=== PATIENT | female | born 1990 | race African-American/Black ===

== ENCOUNTER 2020-07-05 10:44 | Emergency (ER) | payer MEDICAID, SELFPAY ==
[2020-07-05 10:58] VITALS: BP 126/81; PULSE 100; RESP 16; TEMP 36.9; O2SAT 100
--- NOTE | 2020-07-05 11:15 | ED.FEMALEGU ---
HPI - Female Genitourinary General Chief complaint: Urogenital-Female Stated complaint: pos yeast infection/pos uti Time Seen by Provider: 07/05/20 11:00 Source: patient and RN notes reviewed Mode of arrival: ambulatory Limitations: no limitations History of Present Illness HPI Narrative: Patient presents today complaining of 2 to 3-day history of yellow malodorous vaginal discharge, external genital irritation and itching. 3 days ago, patient started on cefadroxil after her liposuction procedure and believes that this may be what started her symptoms. Denies hematuria, dysuria, frequency, urgency, abdominal pain or back pain. She tried a 1 day wxdc-ujz-qejroqa yeast medication without relief. MD elicited complaint: vaginal discharge Related Data Home Medications Medication Instructions Recorded Confirmed Duricef 07/05/20 Allergies Allergy/AdvReac Type Severity Reaction Status Date / Time shellfish derived Allergy Unknown Swelling Verified 08/20/18 23:58 Review of Systems Review of Systems: Narrative: CONSTITUTIONAL: Denies body aches, fever, chills, or sweats. EYES: Denies visual changes, redness, or discharge. ENT: Denies rhinorrhea, congestion, sore throat, or otalgia. CARDIOVASCULAR: Denies chest pain, palpitations, or edema. RESPIRATORY: Denies cough or dyspnea. GASTROINTESTINAL: Denies abdominal pain, nausea, vomiting, or diarrhea. GENITOURINARY: Denies dysuria or hematuria. + Vaginal discharge, vulvar itching and irritation. SKIN: Denies rash, itching, or wounds. MUSCULOSKELETAL: Denies back pain, joint pain, or myalgia. NEUROLOGIC: Denies headache, numbness, tingling, or weakness. PSYCH: Denies depression or anxiety. PMFSH Comments At time of signature, I have reviewed and agree with nursing past medical, surgical, social and family history unless otherwise noted. Please see nursing chart for further information. There is no relevant family history pertinent to the presenting complaint Exam Narrative: Exam Narrative: GENERAL: Well-appearing, well-nourished, and in no acute distress. HEAD: Normocephalic, atraumatic. EYES: EOMI. No redness or drainage. Conjunctivae normal. ENT: Mucous membranes pink and moist. NECK: Normal AROM. CHEST: No respiratory distress. ABDOMEN: Soft, nontender, nondistended, normal active bowel sounds. : External genitalia is mildly swollen, erythematous and irritated with small amount of white discharge noted from the vagina. MUSCULOSKELETAL: No bony tenderness. EXTREMITIES: Normal range of motion. No edema. SKIN: Warm, dry, no rash. Capillary refill normal. Normal skin turgor. NEURO: No focal deficits. Alert and oriented x3. Gait steady. PSYCH: Normal affect. No signs of depression or anxiety. Course Vital Signs Vital signs: Vital Signs Temperature 98.5 F 07/05/20 10:58 Pulse Rate 100 07/05/20 10:58 Respiratory Rate 16 07/05/20 10:58 Blood Pressure 126/81 07/05/20 10:58 Pulse Oximetry 100 07/05/20 10:58 Temperature 98.5 F 07/05/20 10:58 Pulse Rate 100 07/05/20 10:58 Respiratory Rate 16 07/05/20 10:58 Blood Pressure 126/81 07/05/20 10:58 Pulse Oximetry 100 07/05/20 10:58 Reviewed. Pt has been instructed to follow up with her PCP regarding her elevated blood pressure today. MDM - Female Genitourinary MDM Narrative Medical decision making narrative: At this time, patient is not experiencing any urinary symptoms. I will treat her for vulvovaginitis and send her urine off for culture. She will continue to take her Duricef. Differential Diagnosis Differential diagnosis: Likely urinary tract infection, bacterial vaginosis, vaginitis and other (Bonnie) Lab Data Attestation: I reviewed the patient's lab results. Labs: Urine Glucose Negative Reference Range: Negative Urine Bilirubin 1+ Reference R
== END 2020-07-05 11:22 | disposition home or self-care (01) ==
PROVIDERS: Emergency Provider Nurse Practitioner
DX: B37.3 Candidiasis of vulva and vagina (principal)
CPT/HCPCS: 81003; 87086; 99213; G0463

== ENCOUNTER 2020-10-02 17:31 | Emergency (ER) | payer SELFPAY ==
--- NOTE | 2020-10-02 17:37 | ED.FEMALEGU ---
HPI - Female Genitourinary General Chief complaint: Urogenital-Female Stated complaint: Yeast infection Time Seen by Provider: 10/02/20 17:42 Source: patient and RN notes reviewed Mode of arrival: ambulatory Limitations: no limitations History of Present Illness HPI Narrative: 29-year-old female presents with concern for vaginal itching. Reports she has been taking antibiotic for a tooth infection and began having vaginal itching. Reports she tried [id number] Monistat which made the irritation worse so she rinsed it off. She denies any concern for STD, recently had negative STD testing. She denies dysuria, frequency, urgency, abdominal pain, fever, body aches. Reports small amount of thick white vaginal discharge. MD elicited complaint: genital itching Related Data Allergies Allergy/AdvReac Type Severity Reaction Status Date / Time shellfish derived Allergy Intermediate Swelling Verified 10/02/20 17:39 Review of Systems Review of Systems: Narrative: CONSTITUTIONAL: Denies malaise, chills, sweats, or fever. GASTROINTESTINAL: Denies abdominal pain, nausea, vomiting, diarrhea GENITOURINARY: Denies dysuria or hematuria. SKIN: Reports vaginal itching MUSCULOSKELETAL: Denies myalgia. All systems reviewed & are unremarkable except as noted in HPI and below PMFSH Social History Social History Gender identity (if verbalized by the patient): Female Comments At time of signature, agree with nursing past medical, surgical, social and family history. There is no relevant family history pertinent to the presenting complaint Exam Narrative: Exam Narrative: GENERAL: Well-appearing, well-nourished, and in no acute distress. HEAD: Normocephalic. EYES: PERRLA, conjunctivae clear. NECK: Supple. No lymphadenopathy CHEST: Clear to auscultation. No respiratory distress. HEART: Regular rate and rhythm. ABDOMEN: Soft, nontender upon palpation, nondistended, no palpable or pulsatile masses, no guarding. SKIN: Warm, dry, no rash. NEURO: Alert and oriented x3. PSYCH: Normal mood and affect Course Course Emergency Course: Patient is aware of diagnosis, understands and agrees to treatment plan. Anticipatory guidance given. Patient agrees to follow-up as directed and is aware of reasons to seek care at the emergency department. Portions of this record may have been created with voice recognition software Vital Signs Vital signs: Reviewed. MDM - Female Genitourinary MDM Narrative Medical decision making narrative: Exam findings show no acute concerns or changes; patient is non-toxic appearing and is in no distress. Patient is appropriate for outpatient treatment and follow-up. Critical Care Time Critical Care Time Critical Care Time: No Discharge Plan Discharge Clinical Impression: Vaginal itching Patient Disposition: Home, Self-Care Condition: Stable Instructions: Yeast Infection (ED) Additional Instructions: 1) Please follow-up with your primary care doctor in the next 1-2 days. 2) If you have any worsening of symptoms or any other urgent concerns please go to the ER. 3) Please take medications as prescribed and continue taking your home medications as usual. It can take up to 7 days for vaginal yeast infection medication to completely relieve symptoms. Take the first tablet today, if you have continuing symptoms after 48 hours you can take a tablet. You can use an wwkl-afg-[id number] vaginal itch cream. 4) Please read and follow information included in discharge instructions. Prescriptions: New fluconazole [Diflucan] 150 mg tablet 150 mg PO ONCE Qty: 2 RF: 0 Follow-up/Referrals: PHYSICIAN,FUNCTIONAL CONSULTANT [Primary Care Provider] - Time of Disposition: 17:52
[2020-10-02 17:42] VITALS: BP 125/77; PULSE 100; RESP 18; TEMP 37.1; O2SAT 100
== END 2020-10-02 17:54 | disposition home or self-care (01) ==
PROVIDERS: Emergency Provider Nurse Practitioner
DX: N89.8 Other specified noninflammatory disorders of vagina (principal)
CPT/HCPCS: 99213; G0463

== ENCOUNTER 2021-03-05 21:41 | Emergency (ER) | payer OTHER, MEDICAID, SELFPAY ==
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
[2021-03-05 22:04] VITALS: BP 128/92; PULSE 70; RESP 16; TEMP 36.4; O2SAT 100
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
[2021-03-06] MEDS: IBUPROFEN 400 MG TABLET 800 MG PO (04:02)
[2021-03-06 04:41] LABS: Add Urine Microscopic? YES; Appearance Urine Cloudy (Clear); Bilirubin Urine Negative (Negative); Color Urine Amber (Yellow); Glucose Urine UA Negative (Negative); Ketones Urine Trace mg/dL (Negative); Leukocyte Esterase Ur 1+ LEU/UL (Negative); Mucus Urine Heavy /lpf; Nitrate Urine Negative (Negative); Protein Urine 1+ mg/dL (Negative); Squamous Epithelial Cell Urine Many /hpf (Few); WBC Urine 21-30 /hpf
[2021-03-06 04:47] LABS: Blood Urine Negative (Negative); Specific Grav Ur 1.032 (1.001-1.035)
[2021-03-06] MEDS: CEPHALEXIN 500 MG CAPSULE PO (05:05)
[2021-03-06 05:13] VITALS: BP 109/68; PULSE 66; RESP 18; TEMP 36.5; O2SAT 98
== END 2021-03-06 05:14 | disposition home or self-care (01) ==
PROVIDERS: Emergency Provider Emergency Medicine
DX: S40.022A Contusion of left upper arm, initial encounter (principal); S16.1XXA Strain of muscle, fascia and tendon at neck level, initial encounter; M54.9 Dorsalgia, unspecified; N39.0 Urinary tract infection, site not specified; V43.52XA Car driver injured in collision with other type car in traffic accident, initial encounter; Y92.410 Unspecified street and highway as the place of occurrence of the external cause
CPT/HCPCS: 72040; 72070; 72100; 73060; 81001; 81025; 87086; 87088; 99284; A9270

== ENCOUNTER 2021-11-05 20:18 | Emergency (ER) | payer MEDICAID, SELFPAY ==
--- NOTE | ~2021-11-05 | CT_ITS ---
EXAMINATION: CTA chest PE protocol DATE: 11/05/2021 22:47 INDICATION: Chest pain radiating to the right shoulder. TECHNIQUE: Computed tomography (CT) pulmonary angiogram of the chest was performed with 100 mL Omnipa que-350 intravenous contrast. Additional 3D reconstructions utilizing coronal maximum intensity proje ction (MIP) were performed. Automated exposure control and iterative reconstruction technique were em ployed. The dose-length product was 260.88 mGy-cm. COMPARISON: None FINDINGS: No pulmonary embolism. No pneumonia, pulmonary edema, pleural effusion or pneumothorax. Heart size is normal. No pericardial effusion. Thoracic aorta is normal in caliber with no dissection. No patholog ically enlarged just upper abdomen is unremarkable. lymphadenopathy. Mild S-shaped thoracic scoliosis . IMPRESSION: 1. No pulmonary embolism or other acute cardiopulmonary disease. Reviewed, dictated and finalized at location A.
--- NOTE | ~2021-11-05 | XR_ITS ---
EXAMINATION: XR chest 1V portable DATE: 11/05/2021 20:34 INDICATION: Left-sided chest pain TECHNIQUE: frontal view of the chest was obtained. COMPARISON: None FINDINGS: The lungs are clear with no focal airspace opacities, pulmonary edema, pleural effusion or pneumothor ax. The cardiomediastinal silhouette is normal. Mild upper thoracic dextrocurvature with mild levocur vature of the mid to lower thoracic spine. IMPRESSION: 1. No acute cardiopulmonary disease. Reviewed, dictated and finalized at location A.
[2021-11-05 20:15] VITALS: BP 115/91; PULSE 127; RESP 18; TEMP 37.1; O2SAT 100
--- NOTE | 2021-11-05 20:20 | ECG_ITS ---
Measurements Intervals [place] Rate: 127 P: 50 NV: 161 QRS: 65 QRSD: 90 T: 18 QT: 335 QTc: 488 Interpretive Statements SINUS TACHYCARDIA BASELINE ARTIFACT NONSPECIFIC T-WAVE ABNORMALITY INFERIOR LEADS ABNORMAL ECG NO PREVIOUS ECG AVAILABLE FOR COMPARISON Electronically Signed On 11-06-2021 15:58:23 CDT by Leodan Carrizales M.D.
--- NOTE | 2021-11-05 20:47 | ED.GENADULT ---
HPI - General Adult General Chief complaint: Chest Pain Stated complaint: CHEST PAIN History of Present Illness HPI narrative: This is a 30-year-old female presenting to ED for chest pain. The patient said that the chest pain started today at 4:00 p.m. while she was changing clothes. She describes it as a heaviness over Uppstrom knee on the posterior right shoulder. Has 5/10 in intensity. Sudden onset getting worse. She denies this ever happening before. It is worsened with deep breaths and there are no alleviating factors. It is not associated with diaphoresis, vomiting or exertion. She denies lower extremity swelling or history of blood clots. The patient did have a breast reduction surgery 2 weeks ago. The patient stated that she was coming to the hospital when she was pulled over by police. There is a warrant for her arrest. She was then brought to the hospital for medical evaluation. Related Data Allergies Allergy/AdvReac Type Severity Reaction Status Date / Time shellfish derived Allergy Intermediate Swelling Verified 10/02/20 17:39 Review of Systems Review of Systems: CONSTITUTIONAL: Denies night sweats. EYES: No eye pain ENT: Denies rhinorrhea CARDIOVASCULAR: Denies palpitations RESPIRATORY: Denies hemoptysis GASTROINTESTINAL: Denies hematemesis GENITOURINARY: Denies hematuria. SKIN: Denies rash MUSCULOSKELETAL: Denies myalgia. NEUROLOGIC: Denies weakness. PSYCHIATRIC: Denies delusions PMFSH Social History Social History Gender identity (if verbalized by the patient): Female Exam Narrative: APPEARANCE: No apparent distress. Head atraumatic. EYES: PERRLA/EOMI, NOSE: Normal no drainage NECK: Supple, Trachea midline RESPIRATORY: CTAB, No increased work of breathing. CARDIOVASCULAR: S1S2 appreciated, no lower extremity edema. Tachycardic ABDOMINAL: Soft, nontender, nondistended, MUSCULOSKELETAl: No obvious deformities NEURO: Alert. Moving 4/4 extremities SKIN:: Warm, dry. Normal color PSYCHIATRIC: Normal affect Course Vital Signs Vital signs: Vital Signs Temperature 98.7 F 11/05/21 20:15 Pulse Rate 127 H 11/05/21 20:15 Respiratory Rate 18 11/05/21 20:15 Blood Pressure 115/91 H 11/05/21 20:15 Pulse Oximetry 100 11/05/21 20:15 Temperature 98.7 F 11/05/21 20:15 Pulse Rate 127 H 11/05/21 20:15 Respiratory Rate 18 11/05/21 20:15 Blood Pressure 115/91 H 11/05/21 20:15 Pulse Oximetry 100 11/05/21 20:15 Medical Decision Making MDM Narrative Medical decision making narrative: This is a 30-year-old female presenting to ED with chest pain. Patient has a Wells score of 3 which puts her at moderate risk for PE. Lab work, troponin BNP and D-dimer have been ordered. EKG and chest x-ray have been ordered. Patient has been given 1 L fluids. EKG interpretation: Rhythm Sinus tachycardia, Rate 127, [place] -normal, IN -normal, QRS narrow, QTC normal, T waves -negative for concerning inversions, ST Segments - Negative for concerning elevations Final interpretations: Sinus tachycardia Vital Signs Vital Signs: Vital Signs Temperature 98.7 F 11/05/21 20:15 Pulse Rate 127 H 11/05/21 20:15 Respiratory Rate 18 11/05/21 20:15 Blood Pressure 115/91 H 11/05/21 20:15 Pulse Oximetry 100 11/05/21 20:15 Temperature 98.7 F 11/05/21 20:15 Pulse Rate 127 H 11/05/21 20:15 Respiratory Rate 18 11/05/21 20:15 Blood Pressure 115/91 H 11/05/21 20:15 Pulse Oximetry 100 11/05/21 20:15 Discharge Plan Discharge Prescriptions: No Action fluconazole [Diflucan] 150 mg tablet 150 mg PO ONCE Qty: 2 0RF Rx Instructions: Take 1 tablet today, and 48 hours take a second tablet if your still having symptoms cyclobenzaprine 10 mg tablet 10 mg PO TID PRN (Reason: muscle spasm) Qty: 21 0RF diclofenac potassium 50 mg tablet 50 mg PO TID PRN (Reason: pain) Qty: 21 0
[2021-11-05 21:05] VITALS: BP 132/94; PULSE 104; RESP 16; O2SAT 98
[2021-11-05 21:12] LABS: Basophils Percent Auto 0.4 % (0.2-1.2); Eosinophils Absolute Auto 0.1 K/mm3 (0-0.3); Eosinophils Percent Auto 0.7 % (0-4.4); Hematocrit 36.2 % (37.0-47.0); Hemoglobin 11.5 g/dL (12.0-15.0); Immature Granulocyte Absolute 0.02 K/mm3 (0.00-0.031); Immature Granulocyte Percent A 0.3 % (0-0.5); Lymphocytes Absolute Auto 1.67 K/mm3 (0.9-3.2); Lymphocytes Percent Auto 22.2 % (18.3-44.2); Mean Corpuscular HGB Conc 31.8 g/dl (32-36); Mean Corpuscular Hemoglobin 27.1 pg (26-34); Mean Corpuscular Volume 85.4 fl (80-100); Mean Platelet Volume 10.7 fl (7.4-10.4); Monocytes Absolute Auto 0.5 K/mm3 (0.1-0.6); Monocytes Percent Auto 7.2 % (2.6-8.5); Neutrophils Absolute Auto 5.2 K/mm3 (1.3-6.7); Neutrophils Percent Auto 69.2 % (45.5-73.1); Platelet Count Result 436 k/mm3 (150-375); Red Blood Count 4.24 M/mm3 (4.2-5.4); White Blood Count 7.5 K/mm3 (4.5-10.0)
[2021-11-05 21:21] LABS: Prothrombin Time 13.2 Seconds (11.1-14.7)
[2021-11-05 21:26] LABS: Alanine Aminotransferase 16 U/L (6-35); Albumin Level 4.7 g/dL (3.5-5.1); Alkaline Phosphatase 76 U/L (38-126); Anion Gap 13 mmol/L (8-16); Aspartate Amino Transferase 24 U/L (14-36); Blood Urea Nitrogen 9 mg/dL (7-17); Calcium 9.4 mg/dL (8.4-10.2); Carbon Dioxide 21 mmol/L (22-30); Chloride 101 mmol/L (98-107); Estimated CRCL calculation 98 ml/min; Estimated Glomerular Filt Rate > 60; Glucose 107 mg/dL (65-110); Potassium 3.1 mmol/L (3.4-5.0); Sodium 135 mmol/L (137-145)
[2021-11-05 21:30] LABS: NT Pro B Type Natriuretic Pept < 11 pg/mL (5-100)
[2021-11-05 21:37] LABS: Troponin I 0.016 ng/mL (0.000-0.034)
[2021-11-05 21:45] LABS: D Dimer 0.97 ug/mL (<0.48); Lipase 41 U/L (23-300)
[2021-11-05 21:51] VITALS: PULSE 100
[2021-11-05 21:52] VITALS: BP 124/105; PULSE 93; RESP 18; O2SAT 98
[2021-11-05 22:23] LABS: Amphetamine Screen Urine Negative (Negative); Barbiturate Screen Urine Negative (Negative); Benzodiazepines Screen Urine Negative (Negative); Cannabinoid Screen Urine Negative (Negative); Cocaine Screen Urine Negative (Negative); Methadone Screen Urine Negative (Negative); Opiate Screen Urine Negative (Negative); Phencyclidine Screen Urine Negative (Negative)
[2021-11-05] MEDS: POTASSIUM BICARBONATE 25 MEQ TABEF 50 MEQ PO (22:27)
[2021-11-05] MEDS: POTASSIUM CHLORIDE 20 MEQ TABLET 40 MEQ (22:56)
[2021-11-05 23:31] LABS: Troponin I 0.016 ng/mL (0.000-0.034)
[2021-11-05 23:59] VITALS: RESP 16
== END 2021-11-06 00:13 ==
PROVIDERS: Emergency Provider Emergency Medicine
DX: R07.89 Other chest pain (principal)
CPT/HCPCS: 36415; 71045; 71275; 80053; 80307; 81025; 83690; 83880; 84484; 85025; 85380; 85610; 85730; 93005; 99284; A9270; Q9967

== ENCOUNTER 2024-06-16 21:04 | Emergency (ER) | payer MEDICAID, SELFPAY ==
--- NOTE | ~2024-06-16 | XR_ITS ---
XR ankle RT min 3V Ordering provider: Nuvia Miller MD History: . RIGHT ANKLE PAIN . Comparison: None. FINDINGS: BONES: No acute fracture or dislocation. JOINT SPACES: Normal. SOFT TISSUES: Normal. IMPRESSION: No acute osseous abnormality of the right ankle. Reviewed, dictated and finalized at location A.
--- NOTE | ~2024-06-16 | XR_ITS ---
XR chest 2V Ordering provider: Nuvia Miller MD History: 33 years Female with . right sided chest discomfort . Comparison: None. FINDINGS: MEDIASTINUM: The cardiac silhouette is not enlarged. LUNGS: No infiltrates, effusions or pneumothorax. OTHER: No free air under the diaphragm. IMPRESSION: No acute cardiopulmonary pathology. Reviewed, dictated and finalized at location A.
[2024-06-16 21:07] VITALS: BP 117/80; PULSE 69; RESP 16; TEMP 37; O2SAT 100
--- OUTSIDE RECORDS SUMMARY | 2024-06-16 21:07 | XMS_ITS | Encounter Summary ---
Author Organization [facility] Address [address] [place] [address] Care Team Providers Care Enterprise Architect Manager Name Role Phone Brooke Morley MD Primary Care Provider [phone] Encounter Details Date Type Department Care Team (Late st Contact Info) Description 05/17/2024 Results Follow-Up [facility] Jeni Antonio [address] [id number] [place] [address] [address] VAGINOSIS/VAGINITIS PANEL PLUS Social History Tobacco Use Types Packs/Day Years Used Date Smoking Tobacco: Never Smokeless Tobacco: Never Alcohol Use Standard Drinks/Week Comments No 0 (1 standard drink = 0.6 oz pur e alcohol) Comments No Sex and Gender Information Value Date Recorded Sex Assigned at Not on file Legal Sex Female 4:06 PM CDT Gender Identity Not on file Sexual Orientation Not on file documented as of this encounter Plan of Treatment Upcoming Encounters Date Type Department Care Team (Late st Contact Info) Description 10/17/2024 9:00 AM CDT Appointment [facility] Jeni Antonio [address] [place] [phone] [place] [address] [address] documented as of this encounter Visit Diagnoses Not on filedocumented in this encounter Care Teams Enterprise Architect Manager Relationship Specialty [place] [address] [address] PCP - General Family Practice 09/06/18 documented as of this encounter
--- OUTSIDE RECORDS SUMMARY | 2024-06-16 21:07 | XMS_ITS | Referral Summary ---
Author Organization [facility] Address [address] [address] Care Team Providers Care Corporate Manager Name Role Phone Unavailable Primary Care Provider Unavailabl e Source Comments [facility],non-owned Affiliates and Associated Physician Practices is amultiple site organization consisting of ambulatory clinics and hospital sitesin [place], [place], [place] and [place]. This disclosure is being madepursuant to the Care Everywhere program and may not contain all information available regarding this patient. Last updated 17.[facility] [employer] Allergies Active Allergy Reactions Criticality Noted Date Comments Shellfish Allergy Anaphylaxis High 08/05/2017 Medications * Be aware that medications may not be up to date on this document. Alwaysverify current medications with the patient. Medication Sig Dispensed Refills Start Date End Date Status predniSONE (DELTASONE) 20 MG tablet Take 2 tablets by mouth once daily 6 tablet 08/05/2017 Active diphenhydrAMINE (BENADRYL) 25 MG tablet Take 1 tablet by mouth every 4 hours as needed for Itching or Allergies 20 tablet 08/05/2017 Active Social History Tobacco Use Types Packs/Day Years Used Date Smoking Tobacco: Never Smokeless Tobacco: Never Alcohol Use Standard Drinks/Week Comments No 0 (1 standard drink = 0.6 oz pur e alcohol) Sex and Gender Information Value Date Recorded Sex Assigned at Not on file Gender Identity Not on file Sexual Orientation Not on file Last Filed Vital Signs Vital Sign Reading Time Taken Comments Blood Pressure 142/81 08/05/2017 1:27 PM CDT Pulse 90 08/05/2017 1:27 PM CDT Temperature 37 C (98.6 F) 08/05/2017 2:00 PM CDT Respiratory Rate 13 08/05/2017 1:27 PM CDT Oxygen Saturation 99% 08/05/2017 1:27 PM CDT Inhaled Oxygen Concentration - - Weight - - Height - - Body Mass Index - - Plan of Treatment Not on file
--- OUTSIDE RECORDS SUMMARY | 2024-06-16 21:07 | XMS_ITS | Referral Summary ---
Author Organization [facility] Address [address] [facility] [place] [address] Care Team Providers Care Refractive Surgeon Name Role Phone Peyman Danyelleyadiel Rodriguezelle Primary Care Provid er Allergies Active Allergy Reactions Criticality Noted Date Comments Shellfish Anaphylaxis High 08/05/2017 Medications medroxyPROGESTER one (PROVERA) 10 mg tablet Take 1 tablet (10 mg total) by mouth daily for 5 days 5 tablet 08/12/2021 Active Active Problems No known active problems Immunizations Immunization Administration Dates Next Due DTaP 03/09/1995,02/03/1994,07/15/1992 HPV, Quadrivalent 06/08/2007 Hep A, Adult 07/25/2012 Hep B Vaccine 08/10/2002,08/23/1996,11/23/1995 HiB 04/16/1992 IPV 08/17/2005,02/03/1994,04/16/1992 ,03/20/1990 MMR 02/03/1994,04/16/1992 Tdap 08/17/2005 Varicella 06/08/2007,08/10/2002 Social History Tobacco Use Types Packs/Day Years Used Date Smoking Tobacco: Never Tobacco Cessation:Counseling Given: Not Answered Personal Safety Answer Date Recorded Have you ever been in or are you currently in a harmful physical or emotional relationship or is someone making you feel afraid or unsafe? Denies 08/22/2022 Comments Unknown Sex and Gender Information Value Date Recorded Sex Assigned at Not on file Legal Sex Female 10:48 AM SPORTS PHYSICIAN Gender Identity Female 12/10/2021 2:18 AM CDT Sexual Orientation Not on file Last Filed Vital Signs Vital Sign Reading Time Taken Comments Blood Pressure 113/83 08/22/2022 7:20 PM CDT Pulse 81 08/22/2022 7:20 PM CDT Temperature 37 C (98.6 F) 08/22/2022 7:20 PM CDT Respiratory Rate 16 08/22/2022 7:20 PM CDT Oxygen Saturation 100% 08/22/2022 7:20 PM CDT Inhaled Oxygen Concentration - - Weight 74.8 kg (165 lb) 08/22/2022 6:41 PM CDT Height 165.1 cm (5' 5 ) 08/22/2022 6:41 PM CDT Body Mass Index 27.46 08/22/2022 6:41 PM CDT Plan of Treatment Not on file Insurance [facility] Care Teams Refractive Surgeon Relationship Specialty Start Date End Date Danyelle Morley DO [address] [address] PCP - General 07/31/20
--- OUTSIDE RECORDS SUMMARY | 2024-06-16 21:07 | XMS_ITS | Clinical Summary ---
Author Organization [facility] Address [address] [place] [address] Care Team Providers Care Administration Assistant Name Role Phone Daniel Menjivar MD Primary Care Provider [phone] Social History Tobacco Use Types Packs/Day Years Used Date Smoking Tobacco: Never Assessed Comments Unknown Sex and Gender Information Value Date Recorded Sex Assigned at Not on file Legal Sex Female 4:54 PM CDT Gender Identity Not on file Sexual Orientation Not on file Plan of Treatment Health Maintenance Due Date Last Done Comments Cervical Cancer Screening Pa p Smear (Age 30 to 64) Every 3 Years 1989 Annual Physical 1992 Hepatitis C 12/17/2007 DTaP, Tdap and Td Vaccines ( 1 - Tdap) 2008 Hepatitis B Vaccines (1 of 3 - 19+ 3-dose series) 2008 Cervical Cancer Screening Pa p with HPV Testing (Age 30 to 64) Every 5 Years 12/17/2019 Cervical Cancer Screening with HPV 12/17/2019 COVID-19 Vaccine (2023-2 5 season) 2023 Influenza Adult (#1) 2024 HPV Vaccines Aged Out No longer eligi ble based on patient's age to complete this topic Meningococcal B Vaccine Aged Out No l onger eligible based on patient's age to complete this topic Meningococcal Vaccine Aged Out No audrey odalys eligible based on patient's age to complete this topic Pneumococcal Vaccine: Pediat rics (0 to 5 Years) and At-Risk Patients (6 to 64 Years) Aged Out No longer eligible b ased on patient's age to complete this topic RSV Immunizations Under 20 Months Aged Out No longer eligible based on patient's age to complete this topic Care Teams Administration Assistant Relationship Specialty Start Date End Date Daniel Menjivar MD PCP - General 07/03/15
--- OUTSIDE RECORDS SUMMARY | 2024-06-16 21:07 | XMS_ITS | Clinical Summary ---
Author Organization [facility] Address [address] [place] [address] Phone Care Team Providers Care Sign Hanger Supervisor Name Role Phone Brooke Morley MD Primary Care Provider [phone] Allergies Active Allergy Reactions Criticality Noted Date Comments Shellfish Containing Products Swelling Low 2016 Medications PNV,calcium 87-uzfs-zjyte acid (M- Plus) 27 mg iron- 1 mg Tablet Take 1 Tablet by mouth daily. 100 Tablet 3 04/06/2024 2:50 PM SUPERVISOR METAL PLACING 4 Active phentermine (ADIPEX P) 37.5 mg tabletIndicatio ns:Obesity (BMI 30.0-34.9) Take 1 Tablet (37.5 mg) by mouth daily before breakfast. 30 Tablet 1 04/06/2024 2:50 PM SUPERVISOR METAL PLACING 4 Active Additional Information Patient not taking.Reported on 05/15/2024 ferrous sulfate (FeroSuL) 325 mg (65 mg iron) tabletIndicatio ns:Normocytic anemia Take 1 Tablet (325 mg) by mouth daily. 90 Tablet 1 04/06/2024 2:50 PM SUPERVISOR METAL PLACING 4 Active naltrexone (DEPADE) 50 mg tabletIndicatio ns:Overweight (BMI 25.0-29.9) Take 1/2 Tablet (25 mg) by mouth 2 times daily. 45 Tablet 1 05/15/2024 12:08 PM SUPERVISOR METAL PLACING 5 07/14/19 25 Active buPROPion HCL (WELLBUTRIN XL) 150 mg Extended Release 24 hour tabletIndicatio ns:Overweight (BMI 25.0-29.9) Take 1 Tablet (150 mg) by mouth daily in the morning. 90 Tablet 05/15/2024 12:08 PM SUPERVISOR METAL PLACING Active amoxicillin (AMOXIL) 500 mg capsule Take 1 Capsule (500 mg) by mouth 3 times daily until gone. 30 Capsule 5 Active ibuprofen (MOTRIN) 800 mg tablet Take 1 Tablet (800 mg) by mouth every 6 to 8 hours as needed for pain. 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 09/11/2020 Atypical squamous cells of u ndetermined significance on cytologic smear of cervix (ASC-US) 11/08/2018 Overview (08/11/2021): Pap August 2018: ASCUS with + HPV Colpo November 2018: LSIL Pap August 2019: LSIL Colpo 2020: LSIL Pap September 2020: ASCUS with negative HPV Needs repeat pap September 2021 S/P bilateral breast reduction 07/14/2017 Lip mass Resolved Problems Problem Noted Date Diagnosed Date Resolved Date Controlled substance agreeme nt signed-Phentermine 10/16/2021 09/29/2022 Overview (10/16/2021): Associated Diagnosis: E66.9 Current associated controlled meds: Phentermine Pharmacy listed in agreement: [facility] [phone]) Current medication agreement date signed: 10-01-21 First trimester bleeding 01/07/2020 Encounter for cosmetic surgery 07/14/2017 09/29/2022 Macromastia 10/17/2016 09/29/2022 Encounters Date Type Department Care Team Description 06/09/2024 External Device Data [facility] ABSTRACTION Provider, Abstract 06/08/2024 External Device Data [facility] ABSTRACTION Provider, Abstract 06/05/2024 External Device Data [facility] ABSTRACTION Provider, Abstract 05/23/2024 External Device Data [facility] ABSTRACTION Provider, Abstract 05/22/2024 External Device Data [facility] ABSTRACTION Provider, Abstract 05/17/2024 Results Follow-Up [facility] Jeni Antonio [address] [facility] [facility] [address] [place] [phone] Harsh Rosario MD VAGINOSIS/VAGINITIS PANEL PLUS 05/15/2024 9:30 AM SUPERVISOR METAL PLACING Video Visit [facility] [address] [facility] [place] [phone] Harsh Rosario MD Encounter for weight management (Primary Dx); Overweight (BMI 25.0-29.9); Vaginal discharge 05/11/2024 [facility] [address] [facility] [facility] [address] [place] [phone] Brooke Morley MD Needs Appointment 04/25/2024 External Device Data [facility] ABSTRACTION Provider, Abstract 04/24/2024 External Device Data [facility] ABSTRACTION Provider, Abstract 04/16/2024 1:00 PM SUPERVISOR METAL PLACING Procedure visit [facility] Plastic Surgery at the [facility] [address] [place] [address] Yaya Zheng MD Keloid scar of skin (Primary Dx) from Last 3 Months Immunizations Immunization Administration Dates Next Due (ADACEL/BOOSTRIX)(10 YR UP) TDAP VACCINE, 0.5ML, IM 08/17/2005 (GARDASIL)(9-45 YRS) HUMAN PAPILLOMAVIRUS VACCINE, TYPES 6, 11, 16, 18, QUADRIVALENT (4VHPV), 3 DOSE, IM 06/08/2007 (INFANRIX)(6 WKS-6 YRS) DIPT HERIA, TETANUS TOXOIDS, AND ACCELLULAR PERTUSSIS VACCINE (DTAP), 0.5 ML IM 03/09/1995,02/03/1994,07/15/1992 (IPOL)(6 WKS AND UP) POLIOVI MALLORY VACCINE, INACTIVATED (IPV), 3 DOSE, SUBCUT OR IM 08/17/2005,02/03/1994,04/16/1992,03/20 (M-M-R II/PRIORIX)(12 MO UP) MEASLES, MUMPS AND RUBELLA VIRUS VACCINE, 0.5 ML IM/SUBCUT 02/03/1994,04/16/1992 (VARIVAX)(12 MOS UP)VARICELL A VIRUS VACCINE (PF) 0.5 ML, SUB CUT 06/08/2007,08/10/2002 HIB, Unspecified Formulation 04/16/1992 Hepatitis A Vaccine 07/25/2012 Hepatitis B Vaccine 08/10/2002,08/23/1996,1995 Family History Medical History Relation Name Comments Hypertension Father lian ralph Healthy Mother katie hurd Relation Name Status Comments Father lian ralph Alive Mother katie hurd Alive Social History Tobacco Use Types Packs/Day Years Used Date Smoking Tobacco: Never Smokeless Tobacco: Never Tobacco Cessation:Counseling Given: Not Answered Alcohol Use Standard Drinks/Week Comments No 0 (1 standard drink = 0.6 oz pur e alcohol) Comments No Sex and Gender Information Value Date Recorded Sex Assigned at Not on file Legal Sex Female 4:06 PM CDT Gender Identity Not on file Sexual Orientation Not on file Last Filed Vital Signs Vital Sign Reading Time Taken Comments Blood Pressure 123/74 04/16/2024 1:06 PM SUPERVISOR METAL PLACING Pulse 77 12/22/2023 1:44 PM CDT Temperature 36.9 C (98.5 F) 12/22/2023 1:44 PM CDT Respiratory Rate 20 11/07/2021 3:44 PM CDT Oxygen Saturation 99% 12/22/2023 1:44 PM CDT Inhaled Oxygen Concentration - - Weight 80.7 kg (178 lb) 05/15/2024 9:22 AM SUPERVISOR METAL PLACING Height 165.1 cm (5' 5 ) 05/15/2024 9:22 AM SUPERVISOR METAL PLACING Body Mass Index 29.62 05/15/2024 9:22 AM SUPERVISOR METAL PLACING Plan of Treatment Upcoming Encounters Date Type Department Care Team (Late st Contact Info) Description 10/17/2024 9:00 AM CDT Appointment [facility] Family Medicine Jeni Antonio [address] [facility] [address] [place] [address] [place] [address] [address] [facility] [address] [place] [address] Health Maintenance Due Date Last Done Comments HPV VACCINES (2 - 3-dose series) 07/06/2007 06/08/19 08 DTAP/TDAP/TD VACCINES (5 - T d or Tdap) 08/18/2015 08/17/2005, 03/09/1995, 02/03/1994, Additional history exists Preventative Visit- Commercial 04/04/2024 0 10/10/2023, 09/29/2022, 09/11/2020, Additional history exists CERVICAL CANCER SCREENING 10/09/20242023, 09/29/2022, 08/18/2021, Additional history exists HEPATITIS B VACCINES Completed 08/10/2002, 08/23/1996, 11/23/1995 INFLUENZA VACCINE Completed 12/22/2023, , 01/17/2020, Additional history exists Procedures Procedure Name Priority Date/Time Associated Diagnosis Comments VAGINOSIS/VAGINITIS PANEL PLUS Routine 05/15/2024 12:06 PM SUPERVISOR METAL PLACING Vaginal discharge PATHOLOGY Routine 04/16/2024 3:16 PM SUPERVISOR METAL PLACING Keloid scar of skin CERV/VAG CYTO AGE BASED SCREEN PAP Routine 10/10/2023 5:12 PM CDT Cervical cancer screening from Last 3 Months or Most Recently Relevant to Health Maintenance Results * VAGINOSIS/VAGINITIS PANEL PLUS (05/15/2024 12:06 PM SUPERVISOR METAL PLACING) BACTERIAL VAGINOSIS NEGATIVE NEGATIVE [facility] BONNIE SPECIES NOT DETECTED NOT DETECTED [facility] BONNIE GLABRATA NOT DETECTED NOT DETECTED [facility] Comment: Bonnie species C. albicans, C. tropicalis, C. parapsilosis, and/or C. dubliniensis can be detected, but not differentiated, in the Bonnie spp. result. TRICHOMONAS VAGINALIS (TV), TMA NOT DETECTED NOT DETECTED [facility] CHLAMYDIA TRACHOMATIS RNA, TMA, UROGENITAL NOT DETECTED NOT DETECTED [facility] NEISSERIA GONORRHOEAE RNA, TMA, UROGENITAL NOT DETECTED NOT DETECTED [facility] Comment: For additional information, please refer to https://education.Stazoo.com/faq/GUJ131 (This link is being provided for information/ educational purposes only.) Test Performed at: [facility] [address] [facility] [place] [address] Huma Rendon MD Genital SPECIMEN FROM VAGINA / Unknown 05/15/2024 12:06 PM SUPERVISOR METAL PLACING 05/16/2024 4:15 AM SUPERVISOR METAL PLACING Carmen Ross Negron DO MICROBIOLOGY - GENERAL [facility]DE [facility] Final Result [facility] [phone] [facility] [address] [facility] [place] [address] * PATHOLOGY (04/16/2024 3:16 PM SUPERVISOR METAL PLACING) CASE REPORT Surgical Pathology Report Case: [id number] Authorizing Provider: Yaya Zheng MD Collected: 04/16/2024 03:16 PM Ordering Location: [facility] Plastic Received: 04/17/2024 07:05 AM Surgery at the [facility] Medicine Pathologist: Jose Luis Lisa MD Specimens: A) - Shoulder, left B) - Shoulder, right 12:19 PM SUPERVISOR METAL PLACING [facility] FINAL DIAGNOSIS Skin, left shoulder, excision: - Keloid. Skin, right shoulder, excision: - Keloid. 12:19 PM SUPERVISOR METAL PLACING [facility] at [address] SUPERVISOR METAL PLACING GROSS DESCRIPTION The specimens are received in two containers each labeled Ren Ralph . Received in the first container additionally labeled left shoulder is a 2.1 x 1.0 cm unoriented ellipse of wrinkled lopez-brown skin excised to a depth of 0.9 cm. The margin is inked blue. A distinct lesion is not seen on the skin surface. Additionally received in the container is a 0.9 x 0.1 cm piece of lopez-brown skin excised to a depth of 0.4 cm. The margin is inked black. The ellipse is serially sectioned and the tissue is entirely submitted as follows: A1-ellipse tips; A2-ellipse central sections; A3-intact black inked tissue. Received in the second container additionally labeled right shoulder is a 2.3 x 1.0 cm unoriented ellipse of wrinkled lopez-brown skin excised to a depth of 0.6 cm. The skin surface displays a 1.1 x 0.6 x 0.2 cm raised and smooth lopez area located 0.1 cm from the nearest skin edge. The margin is inked blue. The tissue is serially sectioned and entirely submitted as follows: B1-tips; B2 and B3-central sections. [facility] 5 12:19 PM [facility] MICROSCOPIC DESCRIPTION The slides are labeled [id number] and Ren Ralph. Sections of skin from the left and right shoulder demonstrate thick, eosinophilic, haphazardly arranged collagen bundles associated with an increased number of fibroblasts. 5 12:19 PM [facility] CLINICAL INFORMATION L91.0 - Keloid scar of skin [ICD-10-CM] 12:19 PM [facility] COMMENT Special stain, immunohistochemical, and/or in situ hybridization results are interpreted with controls that demonstrate appropriate staining reactions. Note on use of immunohistochemistry reagents and in situ hybridization probes: These tests were developed and their performance characteristics determined by [facility], Department of Laboratory Medicine. It has not been cleared or approved by the U.S. Food and Drug Administration. The FDA has determined that such clearance or approval is not necessary. The test is used for clinical purposes. It should not be regarded as investigational or for research. This laboratory is certified to perform high complexity testing. Frozen section/operating room consultation, gross examination and dissection, and case sign out may have been performed in part or completely in the following laboratories: [facility], CLIA #[id number] [address] [place] [address] [facility], [place] #[id number] [address] [place] [address] [facility], [place] #[id number] [address] [place] [address] This report was created with the Drippler voice-activated dictation system. Inherent to this system is the possibility of syntax, grammar, punctuation and other errors that could impact the interpretation of the report. If there are interpretative questions about aspects of this report, please contact the performing pathologist. 12:19 PM SUPERVISOR METAL PLACING [facility] Tissue (Shoulder, left) Collection / Unknown 04/16/2024 3:16 PM SUPERVISOR METAL PLACING 04/17/2024 7:05 AM SUPERVISOR METAL PLACING Tissue specimen (specimen) (Shoulder, right) Collection / Unknown 04/16/2024 3:16 PM SUPERVISOR METAL PLACING 04/17/2024 7:05 AM SUPERVISOR METAL PLACING us Yaya Zheng MD PATHOLOGY/CYTOLOGY ORDER JONI Final Result [facility] Package [facility]# [id number] [address] [place] [address] * CERV/VAG CYTO AGE BASED SCREEN PAP (10/10/2023 5:12 PM CDT) COMMENT (PAP): [facility] Comment: This order for age-based cervical cancer and STI screening follows ACOG guidelines(PB 168, 140, DZN734). See individual assays for performing site location. CLINICAL INFORMATION [facility] Comment:None given LAST MENSTRUAL PERIOD [facility] Comment:HNG PREV PAP: [facility] Comment:NONE GIVEN PREV BX: [facility] Comment:NONE GIVEN SOURCE [facility] Comment:Endocervix ADEQUACY: [facility] Comment: Satisfactory for evaluation. Endocervical/transformation zone component present. Age and/or menstrual status not provided PAP INTERP [facility] Comment: Cytology Results: Negative for intraepithelial lesion or malignancy. COMMENT (PAP TEST) [facility] Comment: This Pap test has been evaluated with computer assisted technology. SHOOK SPLICER: [facility] Comment: GIRON, CT(ASCP) CT Screening location: [facility] [place] [address] REVIEW SHOOK SPLICER: Michelle Hughes Comment: ABC, CT(ASCP) CT screening location: [place] [address] Administration [place] [address] EXPLANATORY NOTE [facility] Comment: EXPLANATORY NOTE: The Pap is a screening test for cervical cancer. It is not a diagnostic test and is subject to false negative and false positive results. It is most reliable when a satisfactory sample, regularly obtained, is submitted with relevant clinical findings and history, and when the Pap result is evaluated along with historic and current clinical information. HPV E6/E7 Not Detected Not Detected [facility] Comment: Methodology: [employer] Laborer-Mediated Amplification This assay detects E6/E7 viral messenger RNA (mRNA) from 14 high-risk HPV types (16,18,31,33,35,39,45,51,52,56,58,59,66,68). Cervical sources are required for HPV testing. If a vaginal source from a patient who has had a total hysterectomy with removal of cervix was submitted, please contact the testing laboratory for alternative testing options. For additional information, please refer to http://education.Stazoo.com/faq/UPG082m1 (This link if provided for information/ educational purposes only.) Test Performed at: [facility] [address] [place] [address] Huma Rendon MD Genital SWAB OF ENDOCERVIX / Unknown 10/10/2023 5:12 PM CDT 10/11/2023 2:02 AM CDT Brooke Morley MD PATHOLOGY/CYTOLOGY ORDERABLE S Final Result [facility] [phone] [address] [place] [phone] from Last 3 Months or Most Recently Relevant to Health Maintenance Insurance RX INFOCROSSING Medicaid RX MARTIN PLANS (INTERNAL) [facility] [place] [address] MEDICAID MEDICAID Advance Directives For more information, please contact: [phone] * Full Code (Latest Code Status on File) Date Activated Date Inactivated Comments 09/17/2021 12:02 PM 09/17/2021 10:27 PM * Full Code Date Activated Date Inactivated Comments 08/30/2017 6:13 AM 08/30/2017 1:30 PM * Full Code Date Activated Date Inactivated Comments 03/01/2017 10:57 AM 03/01/2017 9:33 PM Care Teams Sign Hanger Supervisor Relationship Specialty [place] [address] [phone] PCP - General Family Practice 09/06/18
--- OUTSIDE RECORDS SUMMARY | 2024-06-16 21:07 | XMS_ITS | Clinical Summary ---
Author Organization [facility] Address [address] [facility] [facility] [place] [address] Care Team Providers Care Linen Worker Name Role Phone Peyman Danyelleyadiel Rodriguezelle Primary [...] on file Legal Sex Female 10:48 AM RUG CUTTER HELPER Gender Identity Female 12/10/2021 2:18 AM CDT Sexual Orientation Not on file Obstetrics History Para Term AB IAB SAB Ectopic Multiple Livin g Live Births 5 2 2 3 2 2 2 Date Outcome GA Total Labor Labor/2nd/3rd Weight Sex Type Anes PTL Tiff A1 A5 Name Clin Term Term 2018 SAB 7w0d 020 SAB 7w2d 022 AB 5w0d SAB Comments Patient reports 2 uncomplica sven vaginal deliveries. G5 - SAB on 11/20/21 at approx 5 weeks. Retained POC noted on US on 12/10 Last Filed Vital Signs Vital Sign Reading [...] 08/22/2022 6:41 PM CDT Plan of Treatment Health Maintenance Due Date Last Done Comments Cervical Cancer Screening 1989 Depression Screening 1989 Hepatitis C Screening 1989 HPV Vaccines (2 - 3-dose series) 07/06/2007 06/08/2007 Regular Well Visit/Exam 18-64 12/17/2007 DTaP/Tdap/Td Vaccine (5 - Td or Tdap) 08/18/2015 08/17/2005, 03/09/1995, 02/03/1994, Additional history exists Influenza Vaccine (#1) 2023 Hepatitis B Screening Completed 08/10/2002 , 08/23/1996, 11/23/1995 Varicella Vaccines Completed 06/08/2007, 08/10/2002 Pneumococcal vaccine <65 Aged Out No longer eligible based on patient's age to complete this topic Insurance Care Teams Linen Worker Relationship Specialty Start Date End Date Danyelle Morley DO [address] [place] [address] [facility] - General 07/31/20
--- OUTSIDE RECORDS SUMMARY | 2024-06-16 21:07 | XMS_ITS | Encounter Summary ---
Author Organization [facility] Address [address] [place] [address] Care Team Providers Care Exhaust And Muffler Repairer Name Role Phone Brooke Morley MD Primary Care Provider [phone] Encounter Details Date Type Department Care Team (Late Contact Info) Description 06/21/2022 Abstract [facility] [id number] [facility] [address] [place] [address] Mala Donaldson Social History Tobacco Use Types Packs/Day Years Used Date Smoking Tobacco: Never Smokeless Tobacco: Never Alcohol Use Standard Drinks/Week Comments Never 0 (1 standard drink = 0.6 oz pur e alcohol) Comments No Sex and Gender Information Value Date Recorded Sex Assigned at Not on file Legal Sex Female 4:06 PM CDT Gender Identity Not on file Sexual Orientation Not on file COVID-19 Exposure Response Date Recorded In the last 10 days, have yo u been in contact with someone who was confirmed or suspected to have Coronavirus/COVID-19? No / Unsure 06/24/2022 9:21 AM CDT documented as of this encounter Plan of Treatment Upcoming Encounters Date Type Department Care Team (Late Contact Info) Description 10/17/2024 9:00 AM CDT Appointment [facility] Medicine Jeni Antonio [address] [facility] [address] [place] [address] [place] [address] [facility] [address] [place] [address] documented as of this encounter Visit Diagnoses Not on filedocumented in this encounter Care Teams Exhaust And Muffler Repairer Relationship Specialty [place] [address] [address] PCP - General Family Practice 09/06/18 documented as of this encounter
--- OUTSIDE RECORDS SUMMARY | 2024-06-16 21:07 | XMS_ITS | Patient Health Summary ---
Author Organization [facility] Address [address] [place] [address] Care Team Providers Care Photostatic Copy Maker Name Role Phone Unavailable Primary Care Provider Unavailabl e Note from [facility],non-owned Affiliates and Associated Physician Practices is amultiple site organization consisting of ambulatory clinics and hospital sitesin [place], [place], [place] and [place]. This disclosure is being madepursuant to the Care Everywhere program and may not contain all information available regarding this patient. Last updated 17.[facility] Allergies * Shellfish Allergy(Anaphylaxis) -High Criticality Medications * Be aware that medications may not be up to date on this document. Alwaysverify current medications with the patient. * predniSONE (DELTASONE) 20 MG tablet(Started 08/05/2017) Take 2 tablets by mouth once daily * diphenhydrAMINE (BENADRYL) 25 MG tablet(Started 08/05/2017) Take 1 tablet by mouth every 4 hours as needed for Itching or Allergies Social History Tobacco Use Types Packs/Day Years [...] - - Body Mass Index - - Procedures * XR CHEST 1VW PORTABLE(Performed 08/05/2017) Performed for Cough * HCG BETA BLOOD QUANTITATIVE(Performed 08/05/2017) * COMPREHENSIVE METABOLIC PANEL(Performed 08/05/2017) * CBC W AUTO DIFFERENTIAL(Performed 08/05/2017) * CULTURE STREP GROUP A(Performed 08/05/2017) * STREP A SCREEN DIRECT W RFLX STREP A CULTURE(Performed 08/05/2017) Results * XR CHEST 1 VW PORTABLE (08/05/2017 11:49 AM CDT) Anatomical Region Laterality Modality Chest Radiographic Gabby ging 08/05/2017 11:5 3 AM CDT Impressions 08/05/2017 11:54 AM CDT Clear lungs. Narrative 08/05/2017 11:54 AM CDT Chest x-ray single view. HISTORY: Cough. Single view of the chest shows normal heart size with normal vessels. Lungs are clear. Procedure Note Luis Angel Hidalgo MD - 08/05/2017 Chest x-ray single view. HISTORY: Cough. Single view of the chest shows normal heart size with normal vessels. Lungs are clear. IMPRESSION Clear lungs. Krevin Ortiz MD DIAGNOSTIC IMAGING O RDERABLES * (ABNORMAL) CBC W AUTO DIFFERENTIAL (08/05/2017 11:33 AM CDT) WBC 5.3 4.4 - 10.7 x10E9/L 08/05/2017 11:44 AM CDT [facility] WBC Corrected x10E9/L 08/05/2017 11:44 AM CDT [facility] RBC 4.87 3.80 - 5.20 x10E12/L 08/05/2017 11:44 AM CDT [facility] Hemoglobin 11.7(L) 12.0 - 15.6 gm/dL 08/05/2017 11:44 AM CDT [facility] Hematocrit 37.5 35.9 - 45.5 % 08/05/2017 11:44 AM CDT [facility] MCV 77.0(L) 80.7 - 98.3 fl 08/05/2017 11:44 AM CDT [facility] MCH 24.0(L) 26.7 - 34.0 pg 08/05/2017 11:44 AM [facility] MCHC 31.2 30.8 - 35.9 gm/dL 08/05/2017 11:44 AM [facility] Platelet Count 372 153 - 416 x10E9/L 08/05/2017 11:44 AM [facility] RDW-CV 16.5(H) 12.1 - 14.9 % 08/05/2017 11:44 AM [facility] MPV 10.4 9.4 - 12.9 fl 08/05/2017 11:44 AM [facility] Neutrophils % 46.7 44.0 - 73.0 % 08/05/2017 11:44 AM [facility] Lymphocytes % 38.8 20.0 - 43.0 % 08/05/2017 11:44 AM [facility] Monocytes % 12.0 5.0 - 13.0 % 08/05/2017 11:44 AM [facility] Eosinophils % 0.8 0.0 - 6.0 % 08/05/2017 11:44 AM [facility] Basophils % 1.3 0.0 - 2.0 % 08/05/2017 11:44 AM [facility] Immature Granulocytes 0.4 0 - 1 % 08/05/2017 11:44 AM [facility] Neutrophil Absolute 2.46 2.01 - 7.14 x10E9/L 08/05/2017 11:44 AM [facility] Lymphocytes Absolute 2.04 1.07 - 3.94 x10E9/L 08/05/2017 11:44 AM [facility] Monocytes Absolute 0.63 0.26 - 1.07 x10E9/L 08/05/2017 11:44 AM [facility] Eosinophils Absolute 0.04 0 - 0.47 x10E9/L 08/05/2017 11:44 AM [facility] Basophils Absolute 0.07 0 - 0.08 x10E9/L 08/05/2017 11:44 AM [facility] Immature Granulocytes Absolute 0.02 0.00 - 0.06 x10E9/L 08/05/2017 11:44 AM [facility] nRBC Auto 0 /100 WBC 08/05/2017 11:44 AM CDT [facility] Blood BLOOD SPECIMEN / Unknown Venipuncture / Unknown 08/05/2017 11:33 AM CDT 08/05/2017 11:41 AM CDT Kervin Ortiz MD LAB - HEMATOLOGY ORD ERABLES [facility] [address] [place] [address] * (ABNORMAL) COMPREHENSIVE METABOLIC PANEL (08/05/2017 11:33 AM CDT) Glucose 78 74 - 106 mg/dL 08/05/2017 11:58 AM CDT [facility] Sodium 138 136 - 145 mmol/L 08/05/2017 11:58 AM [facility] Potassium 3.3(L) 3.5 - 5.1 mmol/L 08/05/2017 11:58 AM T [facility] Chloride 105 98 - 107 mmol/L 08/05/2017 11:58 AM CDT [facility] CO2 27 22 - 31 mmol/L 08/05/2017 11:58 AM CDT [facility] Calcium 9.4 8.5 - 10.1 mg/dL 08/05/2017 11:58 AM [facility] Anion Gap 6(L) 8 - 16 mmol/L 08/05/2017 11:58 AM T [facility] BUN 7 7 - 21 mg/dL 08/05/2017 11:58 AM [facility] Creatinine 1.00 0.50 - 1.30 mg/dL 08/05/2017 11:58 [facility] Alkaline Phosphatase 77 38 - 126 U/L 08/05/2017 11:58 AM CDT [facility] ALT 18 13 - 61 U/L 08/05/2017 11:58 AM CDT [facility] AST 11 5 - 40 U/L 08/05/2017 11:58 AM [facility] Protein Total 8.7(H) 6.4 - 8.2 gm/dL 08/05/2017 11:58 AM CDT [facility] Albumin 4.2 3.4 - 5.0 gm/dL 08/05/2017 11:58 AM T [facility] Bilirubin Total 0.5 0.2 - 1.0 mg/dL 08/05/2017 11:58 AM CDT [facility] eGFR by MDRD >60 >60 mL/min/1.7 3m2 08/05/2017 11:58 AM CDT [facility] eGFR by MDRD >60 >60 mL/min/1.7 3m2 08/05/2017 11:58 AM CDT [facility] Blood BLOOD SPECIMEN / Unknown Venipuncture / Unknown 08/05/2017 11:33 AM CDT 08/05/2017 11:41 AM CDT Kervin Ortiz MD LAB - CHEMISTRY [place]IL [place] Performing Organization Address [facility] Co de Phone Number [facility] [address] [place] [id number] * HCG BETA BLOOD QUANTITATIVE (08/05/2017 11:33 AM CDT) hCG Quantitative <1 mIU/mL 08/06/19 18 12:00 PM CDT [facility] Blood BLOOD SPECIMEN / Unknown Venipuncture / Unknown 08/05/2017 11:33 AM CDT 08/05/2017 11:41 AM CDT Narrative [facility] - 08/05/2017 12:00 PM CDT hCG Reference Range, mIU/mL: Males 0-2.0 Non Females 0-6.0 Perimenopausal Females ages 41-55* 0-7.7 Postmenopausal Females age >55* 0-14 Females, Weeks after Last Menstrual Period 0.2-1 week 5-50 1 - 2 weeks 50-500 2 - 3 weeks 100-5000 3 - 4 weeks 500-10,000 4 - 5 weeks 1000-50,000 5 - 6 weeks 10,000-100,000 6 - 8 weeks 15,000-200,000 2 - 3 months 10,000-100,000 Trophoblastic Disease >100,000 *In higher than expected hCG in females > age 40, a serum FSH >20 IU/L makes unlikely. Kervin Ortiz MD LAB - CHEMISTRY [place] Performing Organization Address [facility] Co de Phone Number [facility] [address] [place] [phone] * STREP A SCREEN DIRECT W RFLX STREP A CULTURE (08/05/2017 11:32 AM CDT) Strep A Rapid Negative Negative 08/05/2017 11:51 AM CDT [facility] Microbiology ENTIRE THROAT (SURFACE REGION OF NECK) / Unknown Collection / Unknown 08/05/2017 11:32 AM CDT 08/05/2017 11:50 AM CDT Narrative [facility] - 08/05/2017 11:51 AM CDT Test has reflexed to a Strep A culture. Kervin Ortiz MD LAB - MICROBIOLOGY O JOSE Performing Organization Address City/[facility]/ZIP Co de Phone Number [facility] [address] [place] [address] * CULTURE STREP GROUP A (08/05/2017 11:32 AM CDT) Culture Negative for beta-hemolytic Streptococcus Group A MALACHI 08/07/2017 12:55 PM CDT [facility] MICROBIOLOGY Microbiology ENTIRE THROAT (SURFACE REGION OF NECK) / Unknown Collection / Unknown 08/05/2017 11:32 AM CDT 08/05/2017 11:50 AM CDT Kervin Ortiz MD LAB - MICROBIOLOGY O JOSE [facility] MICROBIOLOGY [address] [place] [address], [facility] [phone]
--- OUTSIDE RECORDS SUMMARY | 2024-06-16 21:07 | XMS_ITS | Clinical Summary ---
Author Organization [facility] Address [address] [place] [address] Care Team Providers Care Acds Block 1 Operator Name Role Phone Unavailable Primary Care Provider Unavailabl e Source Comments [facility],non-owned Affiliates and Associated Physician Practices is amultiple site organization consisting of ambulatory clinics and hospital sitesin [place], [place], [place] and [place]. This disclosure is being madepursuant to the Care Everywhere program and may not contain all information available regarding this patient. Last updated 17.[facility] [employer] Allergies Active Allergy Reactions Criticality Noted Date [...] Mass Index - - Plan of Treatment Health Maintenance Due Date Last Done Comments PAP SMEAR 1989 HIV SCREENING 2004 HEPATITIS C SCREENING 12/12/2007 DTAP/TDAP/TD VACCINES (1 - Tdap) 2008 HEPATITIS B VACCINE (1 of 3 - 19+ 3-dose series) 2008 COVID-19 VACCINE (1 - 2023-2 5 season) 2023 INFLUENZA VACCINE (#1) 2023 DEPRESSION SCREENING 04/04/2024 ZOSTER VACCINE (1 of 2) 12/17/2039 HIB VACCINE Aged Out No longer eligi ble based on patient's age to complete this topic HPV VACCINE Aged Out No longer eligi ble based on patient's age to complete this topic MENINGOCOCCAL (Group B) VACC INE SHARED DECISION-MAKING Aged Out No longer eligibl e based on patient's age to complete this topic MENINGOCOCCAL GROUPS A/C/Y/W VACCINE Aged Out No longer eligible b ased on patient's age to complete this topic PNEUMOCOCCAL VACCINE Aged Out No long er eligible based on patient's age to complete this topic
--- NOTE | 2024-06-16 21:10 | ECG_ITS ---
Test Date: 2024-06-16 21:13:53 Measurements Intervals [place] Rate: 68 P: 52 MO: 193 QRS: 82 QRSD: 89 T: 63 QT: 353 QTc: 376 Interpretive Statements SINUS RHYTHM WITH SINUS ARRHYTHMIA No previous ECG available for comparison Electronically Signed On 06-17-2024 13:59:51 CDT by Chava Amaya D.O
--- NOTE | 2024-06-16 23:00 | ED_ITS ---
HPI - Chest Pain General Chief Complaint: Chest Pain Stated Complaint: RIGHT SIDED CHEST DISCOMFORT/LOWER EXTREMITY PAIN Time Seen by Provider: 06/16/24 22:40 Source: patient Mode of arrival: ambulatory Limitations: no limitations History of Present Illness HPI narrative: Patient presents with right side chest discomfort. She states it is not a christelle pain. She also notes that she is having back pain particularly between her shoulder blades slightly to the right. She describes it as an ache , like I need to stretch to get it to pop. These symptoms have been occurring intermittently for the past 6 or 7 months. She went to an emergency room in [place] on May 01, 2024 and had a chest x-ray and other workup performed which was unremarkable by report. She initially states no palliating or provoking factors but then states that it is positional. Not pleuritic in nature. She thought perhaps she noticed some subjective lower extremity edema the other day but thinks I might have been tripping. Has not taking in medications prior to arrival or in the past several weeks including no [id number] analgesics medications. History of anxiety. Has never seen a sales training manager. Although she is initially stated that been going on for 6 or 7 months she does report that also happened approximately 1 year ago and at that time she saw a chiropractor which helped for a period of time. She also notes that she pain in her right ankle this started when she had received a lower extremity massage and felt a pop during that massage. Also notes that Xray has been performed w/o any findings. Her last travel had been in April recently. No history of DVT or pulmonary embolism. No hormone use. Denies any shortness of breath, cough, fevers or chills. Denies any weight loss or night sweats. Cardiac risk factors: No hypertension, no hyperlipidemia, no diagnosis of diabetes mellitus. Nonsmoker. Not obese. No personal history of myocardial infarction/TIA/CVA. Patient's mother did require a cardiac stent before the age of [address] Morley Related Data Allergies Allergy/AdvReac Type Severity Reaction Status Date / Time shellfish derived Allergy Intermediate Swelling Verified 04/16/22 15:21 [facility], [facility] Family History Family History Mother H/O heart artery stent before age 65yo Social History Social History Smoking status: Never smoker Gender identity (if verbalized by the patient): Female Exam 2 Narrative: GENERAL: Well-appearing, well-nourished, and in no acute distress. HEAD: Normocephalic, atraumatic. EYES: Non injected, non icteric ENT: Nares clear, no rhinorrhea or epistaxis. NECK: Supple. CHEST: Speaking in full sentences. No respiratory distress. Lungs clear to auscultation bilaterally without wheezes, crackles, or appreciable consolidation. HEART: Regular rate and rhythm. BACK: No rash on skin. Slightly reproducible pain between shoulder blades at trapezius muscles, though particularly R > L. No scapular winging or gross asymetry. ABDOMEN: Soft, nondistended. EXTREMITIES: Normal range of motion. No lower extremity edema. Full ROM of right ankle without ecchymosis/laceration/contusion/cellulitis. SKIN: Warm, dry, no rash. NEURO: No focal deficits. Alert and oriented x3. PSYCH: Normal mood and affect. Course Vital Signs Vital signs: Vital Signs Temperature 98.6 F 06/16/24 21:07 Pulse Rate 69 06/16/24 21:07 Respiratory Rate 16 06/16/24 21:07 Blood Pressure 117/80 06/16/24 21:07 Pulse Oximetry 100 06/16/24 21:07 Oxygen Delivery Room Air 06/16/24 21:07 Temperature 98.6 F 06/16/24 21:07 Pulse Rate 64 06/17/24 04:44 Respiratory Rate 15 06/17/24 04:44 Blood Pressure 117/76 06/17/24 04:44 Pulse Oximetry 100 06/17/24 04:44 Oxygen Delivery Room Air 06/16/24 23:16 MDM - Chest Pain MDM Narrative Medical decision making narrative: Patient presents with intermittent chest discomfort and mid back pain as well as right ankle pain. In the emergency department they are afebrile with vital signs within normal limits. Normocytic anemia, stable from previous. D-dimer within normal limits. HEART SCORE History 2 highly suspicious 1 moderately suspicious 0 slightly suspicious History score [address] depression/elevation not due to LBBB, LVH, or digoxin [address] depression but LBBB, LVH, nonspecific repolarization changes 0 normal ECG score 1 Age 2 >/= 65 1 45-64 0 <45 Age score 1 Risk factors (HTN, hypercholesterolemia, DM, obesity with BMI >30, current smoker or cessation </=3mo), positive fam hx with parent or sibling with CVD before age 65, atherosclerotic disease (prior MS, PCI/CABG, CVA/TIA, or peripheral arterial disease) 2 >/= 3 risk factors or history of atherosclerotic dz 1 - 1-2 risk factors 0 no known risk factors Risk factor score 1 (Fam Hx) Initial Troponin 2 >3 times normal limit 1 1-3 times normal limit 0 less than or equal to normal limit Troponin score 0 Total HEART Score 3. Patient was pending repeat troponin. Multiple attempts were made at obtaining this lab. Phlebotomy was called. However, patient did elope/leave without completing treatment prior to obtaining it. Because of this, unable to provide return precautions or discharge instructions. Differential Diagnosis Differential diagnosis: Likely fracture of rib, stable angina, unstable angina pectoris, atypical chest pain, st elevation myocardial infarction, costochondritis, chest pain, biliary colic and other (DVT, pulmonary embolism herpes zoster; MSK; fracture/dislocation/stress fracture) Lab Data Attestation: I reviewed the patient's lab results. Lab results narrative: CMP unremarkable 06/17/24 00:21 06/17/24 00:21 Labs: Lab Results 06/17/24 Range/Units 00:21 WBC 6.4 (4.5-10.0) K/mm3 RBC 4.10 L (4.2-5.4) M/mm3 Hgb 11.5 L (12.0-15.0) g/dL Hct 36.0 L (37.0-47.0) % MCV 87.8 (80-100) fl MCH 28.0 (26-34) pg MCHC 31.9 L (32-36) g/dl RDW 14.6 H (11.5-14.5) % Plt Count 236 (150-375) k/mm3 MPV 12.1 H (7.4-10.4) fl Immature Gran % (Auto) 0.2 (0-0.5) % Neut % (Auto) 60.2 (45.5-73.1) % Lymph % (Auto) 32.1 (18.3-44.2) % [place] % (Auto) 5.0 (2.6-8.5) % Eos % (Auto) 2.0 (0-4.4) % Baso % (Auto) 0.5 (0.2-1.2) % Lymph # (Auto) 2.06 (0.9-3.2) K/mm3 [place] # (Auto) 0.3 (0.1-0.6) K/mm3 Eos # (Auto) 0.1 (0-0.3) K/mm3 Baso # (Auto) 0.0 (0.0-0.1) K/mm3 Abs Immat Gran (auto) 0.01 (0.00-0.031) K/mm3 Absolute Neuts (auto) 3.9 (1.3-6.7) K/mm3 Absolute Nucleated RBC 0.000 (0.0-0.012) K/mm3 Nucleated RBC % 0.0 (0.0-0.2) % PT 13.4 (11.1-14.7) Seconds INR 1.0 APTT 28.8 (22.3-36.8) Seconds D-Dimer 0.43 (<0.48) ug/mL Sodium 138 (137-145) mmol/L Potassium 4.1 (3.4-5.0) mmol/L Chloride 105 (98-107) mmol/L Carbon Dioxide 23 (22-30) mmol/L Anion Gap 10 (4-12) mmol/L BUN 11 (7-17) mg/dL Creatinine 0.70 (0.7-1.0) mg/dL Estim Creat Clear Calc 103 ml/min Estimated GFR > 60 (59 - ) Glucose 92 (65-110) mg/dL Calcium 9.4 (8.4-10.2) mg/dL Total Bilirubin 0.3 (0.2-1.3) mg/dL AST 21 (14-36) U/L ALT 17 (6-35) U/L Alkaline Phosphatase 64 (38-126) U/L Troponin I 0.015 (0.000-0.034) ng/mL Total Protein 7.0 (6.3-8.2) g/dL Albumin 4.0 (3.5-5.1) g/dL Lipase 81 (23-300) U/L Imaging Data Attestation: I personally reviewed and interpreted this imaging study as follows: My impression: No acute intrathoracic process on my independent interpretation of chest x-ray No obvious fracture or dislocation on my independent interpretation ankle xray; suspect the appearance at the tib fib intersection is due to shadowing ECG Data EKG #1: Attestation: I personally reviewed and interpreted this ECG as follows: ECG completion date: 06/16/24 ECG completion time: 21:13 Prior ECG tracings: not available for review (unable to access one from previous in EMR despite multiple attempts by myself, charge nurse and nursing tile layer supervisor) Interpretation: Normal sinus rhythm at a rate of 68 beats per minute. There is R to R variation consistent with sinus arrhythmia and likely due to respiratory variation. [place] interval 193. QRS 89. QT/QTC 353/370. Good R-wave progression across the precordial leads. There is isolated T-wave inversion in V3, possibly due to lead placement - no other contiguous lead changes. Discharge Plan Discharge Clinical Impression: Atypical chest pain, Back pain, Normocytic anemia, Pain in right ankle Patient Disposition: Elopement After Seen by Prov Condition: Stable Additional Instructions: Follow-up with primary care physician. Given this chest discomfort has been an issue for awhile and you do have some risk factors, recommend follow up outpatient with cardiology. This can either be arranged through primary care physician or, alternatively, the name of a sales training manager is listed below. Patient Language: French Prescriptions: No Action fluconazole [Diflucan] 150 mg tablet 150 mg PO ONCE Qty: 2 0RF Rx Instructions: Take 1 tablet today, and 48 hours take a second tablet if your still having symptoms cyclobenzaprine 10 mg tablet 10 mg PO TID PRN (Reason: muscle spasm) Qty: 21 0RF diclofenac potassium 50 mg tablet 50 mg PO TID PRN (Reason: pain) Qty: 21 0RF cephalexin 500 mg tablet 500 mg PO Q12H 7 Days Qty: 14 0RF Follow-up/Referrals: Tana Albert DO [Physician] - (Cardiology) UNKNOWN,DOCTOR [Primary Care Provider] -
--- OUTSIDE RECORDS SUMMARY | 2024-06-16 23:01 | XMS_ITS | Clinical Summary ---
Author Organization [facility] Address [address] [place] [address] Care Team Providers Care Foreign Exchange Clerk Name Role Phone Daniel Menjivar MD Primary Care Provider [phone] Social History Tobacco Use Types Packs/Day Years [...] age to complete this topic Care Teams Foreign Exchange Clerk Relationship Specialty Start Date End Date Daniel Menjivar MD PCP - General 07/03/15
--- OUTSIDE RECORDS SUMMARY | 2024-06-16 23:01 | XMS_ITS | Encounter Summary ---
Author Organization [facility] Address [address] [place] [address] Care Team Providers Care Medical Staff Director Name Role Phone Brooke Morley MD Primary Care Provider [phone] Encounter Details Date Type Department Care Team (Late Contact Info) Description 06/21/2022 Abstract [id number] [id number] [facility] [address] [place] [address] Mala Donaldson Social History Tobacco [...] Info) Description 10/17/2024 9:00 AM CDT Appointment [facility] Medicine Jeni Antonio [address] [facility] [address] [place] [address] [place] [address] [facility] [address] [place] [address] documented as of this encounter Visit Diagnoses Not on filedocumented in this encounter Care Teams Medical Staff Director Relationship Specialty [place] [address] [address] PCP - General Family Practice 09/06/18 documented as of this encounter
--- OUTSIDE RECORDS SUMMARY | 2024-06-16 23:01 | XMS_ITS | Clinical Summary ---
Author Organization [facility] Address [address] [place] [address] Phone Care Team Providers Care Schedule Hanger Name Role Phone Brooke Morley MD Primary Care Provider [phone] Allergies Active Allergy Reactions Criticality Noted Date Comments Shellfish Containing Products Swelling Low 2016 Medications PNV,calcium 34-jtvn-tydhk acid (M- Plus) 27 mg iron- 1 mg Tablet Take 1 Tablet by mouth daily. 100 Tablet 3 04/06/2024 2:50 PM ASSOCIATE PROFESSOR OF MANAGEMENT 4 Active phentermine (ADIPEX P) 37.5 mg tabletIndicatio ns:Obesity (BMI 30.0-34.9) Take 1 Tablet (37.5 mg) by mouth daily before breakfast. 30 Tablet 1 04/06/2024 2:50 PM ASSOCIATE PROFESSOR OF MANAGEMENT 4 Active Additional Information Patient not taking.Reported on 05/15/2024 ferrous sulfate (FeroSuL) 325 mg (65 mg iron) tabletIndicatio ns:Normocytic anemia Take 1 Tablet (325 mg) by mouth daily. 90 Tablet 1 04/06/2024 2:50 PM ASSOCIATE PROFESSOR OF MANAGEMENT 4 Active naltrexone (DEPADE) 50 mg tabletIndicatio ns:Overweight (BMI 25.0-29.9) Take 1/2 Tablet (25 mg) by mouth 2 times daily. 45 Tablet 1 05/15/2024 12:08 PM ASSOCIATE PROFESSOR OF MANAGEMENT 5 07/14/19 25 Active buPROPion HCL (WELLBUTRIN XL) 150 mg Extended Release 24 hour tabletIndicatio ns:Overweight (BMI 25.0-29.9) Take 1 Tablet (150 mg) by mouth daily in the morning. 90 Tablet 05/15/2024 12:08 PM ASSOCIATE PROFESSOR OF MANAGEMENT Active amoxicillin (AMOXIL) 500 mg capsule Take [...] meds: Phentermine Pharmacy listed in agreement: [facility] ([phone]) Current medication agreement date signed: 10-01-21 First [...] STL ABSTRACTION Provider, Abstract 05/17/2024 Results Follow-Up [facility] Jeni Antonio [address] [facility] [place] [address] [place] [phone] Harsh Rosario MD VAGINOSIS/VAGINITIS PANEL PLUS 05/15/2024 9:30 AM ASSOCIATE PROFESSOR OF MANAGEMENT Video Visit [facility] [address] [facility] [place] [address] [place] [phone] Harsh Rosario MD Encounter for weight management (Primary Dx); Overweight (BMI 25.0-29.9); Vaginal discharge [facility] [address] [facility] [place] [address] [place] [phone] Brooke Morley MD Needs Appointment 04/25/2024 External Device Data STL ABSTRACTION Provider, Abstract 04/24/2024 External Device Data STL ABSTRACTION Provider, Abstract 04/16/2024 1:00 PM ASSOCIATE PROFESSOR OF MANAGEMENT Procedure visit [facility] Plastic Surgery at the [facility] [address] [place] [address] Yaya Zheng MD Keloid scar of skin [...] Comments Blood Pressure 123/74 04/16/2024 1:06 PM ASSOCIATE PROFESSOR OF MANAGEMENT Pulse 77 12/22/2023 1:44 PM CDT Temperature 36.9 C (98.5 F) 12/22/2023 1:44 PM CDT Respiratory Rate 20 11/07/2021 3:44 PM CDT Oxygen Saturation 99% 12/22/2023 1:44 PM CDT Inhaled Oxygen Concentration - - Weight 80.7 kg (178 lb) 05/15/2024 9:22 AM ASSOCIATE PROFESSOR OF MANAGEMENT Height 165.1 cm (5' 5 ) 05/15/2024 9:22 AM ASSOCIATE PROFESSOR OF MANAGEMENT Body Mass Index 29.62 05/15/2024 9:22 AM ASSOCIATE PROFESSOR OF MANAGEMENT Plan of Treatment Upcoming Encounters Date Type Department Care Team (Late st Contact Info) Description 10/17/2024 9:[address] [facility] Family Medicine Jeni Antonio [address] [facility] [address] [place] [address] [place] [address] [address] [facility] [address] [place] [address] Health Maintenance Due Date Last [...] VAGINOSIS/VAGINITIS PANEL PLUS Routine 05/15/2024 12:06 PM ASSOCIATE PROFESSOR OF MANAGEMENT Vaginal discharge PATHOLOGY Routine 04/16/2024 3:16 PM ASSOCIATE PROFESSOR OF MANAGEMENT Keloid scar of skin CERV/VAG CYTO AGE BASED SCREEN PAP Routine 10/10/2023 5:12 PM CDT Cervical cancer screening from Last 3 Months or Most Recently Relevant to Health Maintenance Results * VAGINOSIS/VAGINITIS PANEL PLUS (05/15/2024 12:06 PM ASSOCIATE PROFESSOR OF MANAGEMENT) BACTERIAL VAGINOSIS NEGATIVE NEGATIVE [facility] BONNIE SPECIES NOT DETECTED NOT DETECTED [facility] BONNIE GLABRATA NOT DETECTED NOT DETECTED [facility] Comment: Bonnie species C. albicans, C. tropicalis, C. parapsilosis, and/or C. dubliniensis can be detected, but not differentiated, in the Bonnie spp. result. TRICHOMONAS VAGINALIS (TV), TMA NOT DETECTED NOT DETECTED [facility] CHLAMYDIA TRACHOMATIS RNA, TMA, UROGENITAL NOT DETECTED NOT DETECTED [facility] NEISSERIA GONORRHOEAE RNA, TMA, UROGENITAL NOT DETECTED NOT DETECTED [facility] Comment: For additional information, please refer to https://education.GIVINGtrax/faq/YZC586 (This link is being provided for information/ educational purposes only.) Test Performed at: [facility] [address] [facility] [place] [address] Huma Rendon MD Genital SPECIMEN FROM VAGINA / Unknown 05/15/2024 12:06 PM ASSOCIATE PROFESSOR OF MANAGEMENT 05/16/2024 4:15 AM ASSOCIATE PROFESSOR OF MANAGEMENT Carmen Ross Negron DO MICROBIOLOGY - [facility]AL [facility] Final Result [facility] [phone] [facility] [address] [facility] [place] [address] * PATHOLOGY (04/16/2024 3:16 PM ASSOCIATE PROFESSOR OF MANAGEMENT) CASE REPORT Surgical Pathology Report Case: [id number] Authorizing Provider: Yaya Zheng MD Collected: 04/16/2024 03:16 PM Ordering Location: [facility] Plastic Received: 04/17/2024 07:05 AM Surgery at the [facility] Medicine Pathologist: Jose Luis Lisa MD Specimens: A) - Shoulder, left B) - Shoulder, right 12:19 PM ASSOCIATE PROFESSOR OF MANAGEMENT [facility] FINAL DIAGNOSIS Skin, left shoulder, excision: - Keloid. Skin, right shoulder, excision: - Keloid. 12:19 PM ASSOCIATE PROFESSOR OF MANAGEMENT [facility] at 1218 ASSOCIATE PROFESSOR OF MANAGEMENT GROSS DESCRIPTION The specimens are received in [...] as follows: B1-tips; B2 and B3-central sections. [facility] 5 12:19 PM [facility] MICROSCOPIC DESCRIPTION The slides are labeled [id number] and Ren Ralph. Sections of skin from the left and right shoulder demonstrate thick, eosinophilic, haphazardly arranged collagen bundles associated with an increased number of fibroblasts. 5 12:19 PM [facility] CLINICAL INFORMATION L91.0 - Keloid scar of skin [ICD-10-CM] 12:19 PM [facility] COMMENT Special stain, immunohistochemical, and/or in situ hybridization results are interpreted with controls that demonstrate appropriate staining reactions. Note on use of immunohistochemistry reagents and in situ hybridization probes: These tests were developed and their performance characteristics determined by [facility], Department of Laboratory Medicine. It [...] part or completely in the following laboratories: [facility], CLIA #[id number] [address] [place] [address] [facility], [place] #[id number] [address] [place] [address] [facility], [place] #[id number] [address] [place] [address] This report was created with the Nykaa voice-activated dictation system. Inherent to this system is the possibility of syntax, grammar, punctuation and other errors that could impact the interpretation of the report. If there are interpretative questions about aspects of this report, please contact the performing pathologist. 12:19 PM ASSOCIATE PROFESSOR OF MANAGEMENT [facility] Tissue (Shoulder, left) Collection / Unknown 04/16/2024 3:16 PM ASSOCIATE PROFESSOR OF MANAGEMENT 04/17/2024 7:05 AM ASSOCIATE PROFESSOR OF MANAGEMENT Tissue specimen (specimen) (Shoulder, right) Collection / Unknown 04/16/2024 3:16 PM ASSOCIATE PROFESSOR OF MANAGEMENT 04/17/2024 7:05 AM ASSOCIATE PROFESSOR OF MANAGEMENT us Yaya Zheng MD PATHOLOGY/CYTOLOGY ORDER JONI Final Result [facility] [employer] [facility]# [id number] [address] [place] [address] * CERV/VAG CYTO AGE BASED SCREEN PAP (10/10/2023 5:12 PM CDT) COMMENT (PAP): [facility] Comment: This order for age-based cervical cancer and STI screening follows ACOG guidelines(PB 168, 140, IJJ940). See individual assays for performing site location. CLINICAL INFORMATION [facility] Comment:None given LAST MENSTRUAL PERIOD [facility] Comment:HNG PREV PAP: [facility] Comment:NONE GIVEN PREV BX: [facility] Comment:NONE GIVEN SOURCE [facility] Comment:Endocervix ADEQUACY: [facility] Comment: Satisfactory for evaluation. Endocervical/transformation zone component present. Age and/or menstrual status not provided PAP INTERP [facility] Comment: Cytology Results: Negative for intraepithelial lesion or malignancy. COMMENT (PAP TEST) [facility] Comment: This Pap test has been evaluated with computer assisted technology. HEALTH CARE MANAGER: [facility] Comment: GIRON, CT(ASCP) CT Screening location: [facility] [place] [address] [facility] HE[facility] CARE MANAGER: Michelle Hughes Comment: ABC, CT(ASCP) CT screening location: [place] [address] [facility] [place] [address] EXPLANATORY NOTE [facility] Comment: EXPLANATORY NOTE: The Pap is a [...] information. HPV E6/E7 Not Detected Not Detected [employer] Comment: Methodology: Energy Administrator-Mediated Amplification This assay detects E6/E7 viral messenger RNA (mRNA) from 14 high-risk HPV types (16,18,31,33,35,39,45,51,52,56,58,59,66,68). Cervical sources are required for HPV testing. If a vaginal source from a patient who has had a total hysterectomy with removal of cervix was submitted, please contact the testing laboratory for alternative testing options. For additional information, please refer to http://education.GIVINGtrax/faq/ICG424o1 (This link if provided for information/ educational purposes only.) Test Performed at: [facility] [address] [place] [address] Huma Rendon MD Genital SWAB OF ENDOCERVIX / Unknown 10/10/2023 5:12 PM CDT 10/11/2023 2:02 AM CDT Brooke Morley MD PATHOLOGY/CYTOLOGY ORDERABLE S Final Result [facility] [phone] [facility] [id number] [place] [address] from Last 3 Months or Most Recently Relevant to Health Maintenance Insurance RX INFOCROSSING Medicaid RX MARTIN PLANS (INTERNAL) [facility] [place] [address] [address] MEDICAID MEDICAID Advance Directives For more information, please contact: [phone] * Full Code (Latest Code Status on File) Date Activated Date Inactivated Comments 09/17/2021 12:02 PM 09/17/2021 10:27 PM * Full Code Date Activated Date Inactivated Comments 08/30/2017 6:13 AM 08/30/2017 1:30 PM * Full Code Date Activated Date Inactivated Comments 03/01/2017 10:57 AM 03/01/2017 9:33 PM Care Teams Schedule Hanger Relationship Specialty [place] [address] [phone] PCP - General Family Practice 09/06/18
--- OUTSIDE RECORDS SUMMARY | 2024-06-16 23:01 | XMS_ITS | Patient Health Summary ---
Author Organization [facility] Address [address] [place] [address] Care Team Providers Care Director Of Photography Name Role Phone Unavailable Primary Care Provider Unavailabl e Note from [facility],non-owned Affiliates and Associated Physician Practices is amultiple site organization consisting of ambulatory clinics and hospital sitesin [place], [place], [place] and [place]. This disclosure is being madepursuant to the Care Everywhere program and may not contain all information available regarding this patient. Last updated 17.[facility] Allergies * Shellfish Allergy(Anaphylaxis) -High Criticality Medications [...] vessels. Lungs are clear. IMPRESSION Clear lungs. Kervin Ortiz MD DIAGNOSTIC IMAGING O RDERABLES * [...] 26.7 - 34.0 pg 08/05/2017 11:44 AM [facility] MCHC 31.2 30.8 - 35.9 gm/dL 08/05/2017 11:44 AM [facility] Platelet Count 372 153 - 416 x10E9/L 08/05/2017 11:44 AM [facility] RDW-CV 16.5(H) 12.1 - 14.9 % 08/05/2017 11:44 AM [facility] MPV 10.4 9.4 - 12.9 fl 08/05/2017 11:44 AM [facility] Neutrophils % 46.7 44.0 - 73.0 % 08/05/2017 11:44 AM [facility] Lymphocytes % 38.8 20.0 - 43.0 % 08/05/2017 11:44 AM [facility] Monocytes % 12.0 5.0 - 13.0 % 08/05/2017 11:44 AM [facility] Eosinophils % 0.8 0.0 - 6.0 % 08/05/2017 11:44 AM [facility] Basophils % 1.3 0.0 - 2.0 % 08/05/2017 11:44 AM [facility] Immature Granulocytes 0.4 0 - 1 % 08/05/2017 11:44 AM [facility] Neutrophil Absolute 2.46 2.01 - 7.14 x10E9/L 08/05/2017 11:44 AM [facility] Lymphocytes Absolute 2.04 1.07 - 3.94 x10E9/L 08/05/2017 11:44 AM [facility] Monocytes Absolute 0.63 0.26 - 1.07 x10E9/L 08/05/2017 11:44 AM [facility] Eosinophils Absolute 0.04 0 - 0.47 x10E9/L 08/05/2017 11:44 AM [facility] Basophils Absolute 0.07 0 - 0.08 x10E9/L 08/05/2017 11:44 AM [facility] Immature Granulocytes Absolute 0.02 0.00 - 0.06 x10E9/L 08/05/2017 11:44 AM [facility] nRBC Auto 0 /100 WBC 08/05/2017 11:44 AM CDT [facility] Blood BLOOD SPECIMEN / Unknown Venipuncture / Unknown 08/05/2017 11:33 AM CDT 08/05/2017 11:41 AM CDT Kervin Ortiz MD LAB - HEMATOLOGY ORD ERABLES [facility] [address] [place] [address] * (ABNORMAL) COMPREHENSIVE METABOLIC PANEL (08/05/2017 11:33 AM CDT) Glucose 78 74 - 106 mg/dL 08/05/2017 11:58 AM CDT [facility] Sodium 138 136 - 145 mmol/L 08/05/2017 11:58 AM [facility] Potassium 3.3(L) 3.5 - 5.1 mmol/L 08/05/2017 11:58 AM T [facility] Chloride 105 98 - 107 mmol/L 08/05/2017 11:58 AM CDT [facility] CO2 27 22 - 31 mmol/L 08/05/2017 11:58 AM CDT [facility] Calcium 9.4 8.5 - 10.1 mg/dL 08/05/2017 11:58 AM [facility] Anion Gap 6(L) 8 - 16 mmol/L 08/05/2017 11:58 AM T [facility] BUN 7 7 - 21 mg/dL 08/05/2017 11:58 AM [facility] Creatinine 1.00 0.50 - 1.30 mg/dL 08/05/2017 11:58 [facility] Alkaline Phosphatase 77 38 - 126 U/L 08/05/2017 11:58 AM CDT [facility] ALT 18 13 - 61 U/L 08/05/2017 11:58 AM CDT [facility] AST 11 5 - 40 U/L 08/05/2017 11:58 AM [facility] Protein Total 8.7(H) 6.4 - 8.2 gm/dL 08/05/2017 11:58 AM CDT [facility] Albumin 4.2 3.4 - 5.0 gm/dL 08/05/2017 11:58 AM T [facility] Bilirubin Total 0.5 0.2 - 1.0 mg/dL 08/05/2017 11:58 AM CDT [facility] eGFR by MDRD >60 >60 mL/min/1.7 3m2 08/05/2017 11:58 AM CDT [facility] eGFR by MDRD >60 >60 mL/min/1.7 3m2 08/05/2017 11:58 AM CDT [facility] Blood BLOOD SPECIMEN / Unknown Venipuncture / Unknown 08/05/2017 11:33 AM CDT 08/05/2017 11:41 AM CDT Kervin Ortiz MD LAB - CHEMISTRY NEIL BARTLETT Performing Organization Address [facility] Co de Phone Number [facility] [address] [place] [address] * HCG BETA BLOOD QUANTITATIVE (08/05/2017 11:33 AM CDT) hCG Quantitative <1 mIU/mL 08/06/19 18 12:00 PM CDT [facility] Blood BLOOD SPECIMEN / Unknown Venipuncture / Unknown 08/05/2017 11:33 AM CDT 08/05/2017 11:41 AM CDT Narrative [facility] - 08/05/2017 12:00 PM CDT hCG [...] - CHEMISTRY NEIL BARTLETT Performing Organization Address [facility] Co de Phone Number [facility] [address] [place] [address] * STREP A SCREEN DIRECT W RFLX STREP A CULTURE (08/05/2017 11:32 AM CDT) Strep A Rapid Negative Negative 08/05/2017 11:51 AM CDT [facility] Microbiology ENTIRE THROAT (SURFACE REGION OF NECK) / Unknown Collection / Unknown 08/05/2017 11:32 AM CDT 08/05/2017 11:50 AM CDT Narrative [facility] - 08/05/2017 11:51 AM CDT Test has reflexed to a Strep A culture. Kervin Ortiz MD LAB - MICROBIOLOGY O JOSE Performing Organization Address City/[facility]/ZIP Co de Phone Number [facility] [address] [place] [address] * CULTURE STREP GROUP A (08/05/2017 11:32 AM CDT) Culture Negative for beta-hemolytic Streptococcus Group A MALACHI 08/07/2017 12:55 PM CDT [facility] MICROBIOLOGY Microbiology ENTIRE THROAT (SURFACE REGION OF NECK) / Unknown Collection / Unknown 08/05/2017 11:32 AM CDT 08/05/2017 11:50 AM CDT Kervin Ortiz MD LAB - MICROBIOLOGY O JOSE [facility] MICROBIOLOGY [address] [place] [address], [facility] [phone]
--- OUTSIDE RECORDS SUMMARY | 2024-06-16 23:01 | XMS_ITS | Referral Summary ---
Author Organization [facility] Address [address] [facility] [place] [address] Care Team Providers Care Forensic Audit Expert Name Role Phone Peyman Danyelleyadiel Rodriguezelle Primary [...] on file Legal Sex Female 10:48 AM NURSE UNIT MANAGER Gender Identity Female 12/10/2021 2:18 AM CDT [...] Plan of Treatment Not on file Insurance [facility] Member Subscriber Plan / Payer (Ef fective 2021-Present) Name:Ren Mack Relation to Subscriber:Self Name:Ren Mack Payer ID:[id number] (NAIC) Group ID:Not on file Type:MEDICAID RISK OTHER Address: [facility] [id number] [place] [id number] Care Teams Forensic Audit Expert Relationship Specialty Start Date End Date Danyelle Morley DO [address] [address] PCP - General 07/31/20
--- OUTSIDE RECORDS SUMMARY | 2024-06-16 23:01 | XMS_ITS | Referral Summary ---
Author Organization [facility] Address [address] [facility] [place] [address] Care Team Providers Care Telephone Assembler Name Role Phone Unavailable Primary Care Provider Unavailabl e Source Comments [facility],non-owned Affiliates and Associated Physician Practices is amultiple site organization consisting of ambulatory clinics and hospital sitesin [place], [place], [place]. This disclosure is being madepursuant to the Care Everywhere program and may not contain all information available regarding this patient. Last updated 17.[facility] [employer] Allergies Active Allergy Reactions Criticality Noted Date [...]
--- OUTSIDE RECORDS SUMMARY | 2024-06-16 23:01 | XMS_ITS | Encounter Summary ---
Author Organization [facility] Address [address] [place] [address] Care Team Providers Care Security Checker Name Role Phone Brooke Morley MD Primary Care Provider [phone] Encounter Details Date Type Department Care Team (Late st Contact Info) Description 05/17/2024 Results Follow-Up [facility] Medicine Jeni Antonio [address] [address] [place] [address] [address] VAGINOSIS/VAGINITIS PANEL PLUS Social History [...] Info) Description 10/17/2024 9:00 AM CDT Appointment [facility] Medicine Jeni Antonio [address] [place] [address] [place] [address] [address] documented as of this encounter Visit Diagnoses Not on filedocumented in this encounter Care Teams Security Checker Relationship Specialty [place] [address] [address] PCP - General Family Practice 09/06/18 documented as of this encounter
--- OUTSIDE RECORDS SUMMARY | 2024-06-16 23:01 | XMS_ITS | Clinical Summary ---
Author Organization [facility] Address [address] [facility] [address] Care Team Providers Care Farm Machinery Assembler Name Role Phone Peyman Danyelleyadiel Rodriguezelle Primary [...] on file Legal Sex Female 10:48 AM GEOPOLITICS TEACHER Gender Identity Female 12/10/2021 2:18 AM CDT [...] to complete this topic Insurance Care Teams Farm Machinery Assembler Relationship Specialty Start Date End Date Danyelle Morley DO [address] [place] [id number] [facility] - General 07/31/20
--- OUTSIDE RECORDS SUMMARY | 2024-06-16 23:01 | XMS_ITS | Clinical Summary ---
Author Organization [facility] Address [address] [facility] [place] [address] Care Team Providers Care Asset Management Lead Name Role Phone Unavailable Primary Care Provider Unavailabl e Source Comments [facility],non-owned Affiliates and Associated Physician Practices is amultiple site organization consisting of ambulatory clinics and hospital sitesin [place], [place], [place] and [place]. This disclosure is being madepursuant to the Care Everywhere program and may not contain all information available regarding this patient. Last updated 17.[facility] [employer] Allergies Active Allergy Reactions Criticality Noted Date [...]
[2024-06-16] MEDS: ASPIRIN 81 MG CHEWABLE TABLET 324 MG PO (23:45)
[2024-06-16 23:55] VITALS: BP 123/81; PULSE 72; RESP 17; O2SAT 99
[2024-06-17 00:26] LABS: Basophils Percent Auto 0.5 % (0.2-1.2); Eosinophils Absolute Auto 0.1 K/mm3 (0-0.3); Hemoglobin 11.5 g/dL (12.0-15.0); Immature Granulocyte Absolute 0.01 K/mm3 (0.00-0.031); Immature Granulocyte Percent A 0.2 % (0-0.5); Lymphocytes Absolute Auto 2.06 K/mm3 (0.9-3.2); Lymphocytes Percent Auto 32.1 % (18.3-44.2); Mean Corpuscular HGB Conc 31.9 g/dl (32-36); Mean Corpuscular Volume 87.8 fl (80-100); Mean Platelet Volume 12.1 fl (7.4-10.4); Monocytes Absolute Auto 0.3 K/mm3 (0.1-0.6); Neutrophils Absolute Auto 3.9 K/mm3 (1.3-6.7); Neutrophils Percent Auto 60.2 % (45.5-73.1); Platelet Count Result 236 k/mm3 (150-375); Red Cell Distribution Width 14.6 % (11.5-14.5); White Blood Count 6.4 K/mm3 (4.5-10.0)
[2024-06-17 00:37] LABS: Alanine Aminotransferase 17 U/L (6-35); Alkaline Phosphatase 64 U/L (38-126); Anion Gap 10 mmol/L (4-12); Aspartate Amino Transferase 21 U/L (14-36); Bilirubin,Total 0.3 mg/dL (0.2-1.3); Blood Urea Nitrogen 11 mg/dL (7-17); Calcium 9.4 mg/dL (8.4-10.2); Carbon Dioxide 23 mmol/L (22-30); Chloride 105 mmol/L (98-107); Estimated CRCL calculation 103 ml/min; Estimated Glomerular Filt Rate > 60; Glucose 92 mg/dL (65-110); Lipase 81 U/L (23-300); Potassium 4.1 mmol/L (3.4-5.0); Sodium 138 mmol/L (137-145)
[2024-06-17 00:39] LABS: Prothrombin Time 13.4 Seconds (11.1-14.7)
[2024-06-17 00:41] LABS: Partial Thromboplastin Time 28.8 Seconds (22.3-36.8)
[2024-06-17 00:48] LABS: Troponin I 0.015 ng/mL (0.000-0.034)
[2024-06-17 01:12] LABS: D Dimer 0.43 ug/mL (<0.48)
[2024-06-17 03:15] VITALS: BP 117/76; PULSE 64; RESP 15; O2SAT 100
--- NOTE | 2024-06-17 03:30 | PC.NURSE ---
pt ambulated from ER room to triage with a steady unassisted gait towards parking lot. pt in no visible distress at this time.
[2024-06-17 04:44] VITALS: BP 117/76; PULSE 64; RESP 15; O2SAT 100
--- NOTE | 2024-06-17 04:47 | PC.NURSE ---
This RN spoke with pt about waiting for EDP to read scans. pt asked how long it will take. pt walked out of ED
== END 2024-06-17 04:53 | disposition left against medical advice (07) ==
PROVIDERS: Emergency Provider Student in an Organized Health Care Education/Training Program
DX: R07.89 Other chest pain (principal); M25.571 Pain in right ankle and joints of right foot; M54.6 Pain in thoracic spine; D64.9 Anemia, unspecified
CPT/HCPCS: 36415; 71046; 73610; 80053; 83690; 84484; 85025; 85380; 85610; 85730; 93005; 99284; A9270